=== PATIENT | female | born 1990 | race Caucasian/White ===

== ENCOUNTER → 2024-01-16 14:50 | Outpatient (BNVA) | payer OTHER, SELFPAY | PROVIDERS: Visit Provider Nurse Practitioner Family | DX: L85.8 Other specified epidermal thickening (principal); D22.72 Melanocytic nevi of left lower limb, including hip; D22.62 Melanocytic nevi of left upper limb, including shoulder; L57.8 Other skin changes due to chronic exposure to nonionizing radiation; L81.4 Other melanin hyperpigmentation | CPT/HCPCS: 11102; 99204 ==